=== PATIENT | male | born 1955 | race Caucasian/White ===

== ENCOUNTER 2019-03-09 07:14 | Outpatient (CLI) | payer BC ==
--- NOTE | 2019-03-09 08:35 | ULT ---
ULTRASOUND OF THE ABDOMINAL AORTA: HISTORY: Screening for abdominal aortic aneurysm. FINDINGS: The measurements of the abdominal aorta are as follows: Proximal: 2.1 x 2.3 x 1.9 cm. Mid: 1.7 x 2 x 1.9 cm. Distal: 1.5 x 1.6 x 1.6 cm. IMPRESSION: No evidence of abdominal aortic aneurysm. POS: [facility]
== END 2019-03-09 07:15 | disposition home or self-care (01) ==
LOC: SCSULT 07:14
PROVIDERS: ATTEND Family Medicine
DX: Z13.6 Encounter for screening for cardiovascular disorders (principal)
CPT/HCPCS: 76775